=== PATIENT | female | born 1960 | race Caucasian/White ===

== ENCOUNTER → 2017-01-18 | Outpatient (CLI) | payer OTHER | LOC: BMCIMAGING 11:49 | PROVIDERS: ATTEND Family Medicine | DX: M25.572 Pain in left ankle and joints of left foot (principal) ==

== ENCOUNTER 2017-04-21 23:21 | Emergency (ER) | payer SELFPAY ==
[2017-04-21] MEDS ORDERED: NS 500 ML IV ONE (23:59)
--- NOTE | 2017-04-22 00:18 | EDPHY ---
H & P Stated Complaint: c/o pain in LUE that has started radiating into L shoulder/L forearm/hand HPI/ROS: HPI CHIEF COMPLAINT: Pain and left arm HISTORY OF PRESENT ILLNESS: Patient is a otherwise very pleasant 56-year-old female, she denies having any significant medical history denies taking any daily medications she presents emergency room with left arm pain. She does not remember any injury. However she states when she moves her left arm over her chest causes her great deal of pain in the posterior left arm. Is worse when she goes to reach over her chest. Or when she goes to lift her left arm up away from her chest. The pain is rather shooting stabbing pain left posterior arm left deltoid region. She denies any chest pain or shortness of breath. Denies any neck pain. Denies any focal weakness. Denies numbness or tingling. 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 She does state that she does not like to move her left arm given that it gives her a great deal of pain. She reports to me that she works at [employer]. She does not remember a specific injury. She states that she had 2 shots of liquor this evening, and smoked pot to help with her pain. This did not give her much relief. Pain is currently 7/10 when she moves her left arm. Past Medical History: No significant medical history Past Surgical History: No significant surgical history Social History: Daily use of alcohol 2 drinks per night, marijuana, denies tobacco. Family History: Noncontributory. ROS REVIEW OF SYSTEMS: A comprehensive 10 point review of systems is otherwise negative aside from elements mentioned in the history of present illness. Exam Constitutional appears well nontoxic triage nursing summary reviewed, vital signs reviewed, awake/alert. Vital Signs Reviewed: HTN. Eyes normal conjunctivae and sclera, EOMI, PERRLA. HENT normal inspection, atraumatic, moist mucus membranes, no epistaxis, neck supple/ no meningismus, no raccoon eyes. Respiratory clear to auscultation bilaterally, normal breath sounds, no respiratory distress, no wheezing. Cardiovascular rate normal, regular rhythm, no murmur, no edema, distal pulses normal. Gastrointestinal soft, non-tender, no rebound, no guarding, normal bowel sounds, no distension, no pulsatile mass. Genitourinary no CVA tenderness. Musculoskeletal no midline vertebral tenderness, full range of motion, no calf swelling, no tenderness of extremities, no meningismus, good pulses, neurovascularly intact. Left upper extremity: Tender palpation over the posterior left humerus proximal aspect, no obvious signs of trauma, with range of motion of her arm across her chest she gets pain in the posterior left arm. Additionally with abduction of her left arm she gets pain. She is otherwise neurovascular intact good radial pulse. Good cap refill. Good sensation. Full range of motion. Pain with range of motion. Strength appropriate. Good salesperson men's furnishings strength. Skin pink, warm, & dry, no rash, skin atraumatic. Neurologic awake, alert and oriented x 3, AAOx3, moves all 4 extremities equally, motor intact, sensory intact, CN II-XII intact, normal cerebellar, normal vision, normal speech. Psychiatric normal mood/affect. Heme/Lymph/Immune no lymphadenopathy. Differential Diagnosis: Includes but is not limited to in a particular order musculoskeletal strain, rotator cuff injury, cervical radiculopathy, nerve root compression, degenerative disc disease, cardiac disease Medical Decision Making: Plan for this patient EKG, x-ray left shoulder, chest x-ray, basic blood work, IV morphine for pain control and re-evaluate. Re-evaluation: EKG interpretation by me on record in [facility] system. Impression time of EKG 0053, this is sinus rhythm rate of 62 no acute ischemic change. Unremarkable nonischemic EKG. 0208: Blood work is reviewed negative troponin. Patient has a nonischemic EKG. Alcohol level noted to be high at 299. Chest x-ray two view as well as left shoulder x-ray reviewed by myself. I do not appreciate acute abnormality on either x-ray. 0209: Patient's exam is consistent with musculoskeletal should shoulder and left arm pain. Worse with certain movements. No evidence of cardiac disease in the emergency room. Alcohol level slightly elevated. I recommend that she could tobacco or alcohol. Additionally will provide her sling for comfort, anti -inflammatory pain medicine and refer her to Orthopedics. Additionally this also may be cervical radiculopathy pain I did explain this to her that she should see her primary care doctor about this possibly get an outpatient MRI to see if she has nerve root compression causing her left arm pain. I think cardiac is highly unlikely given that she has no chest pain shortness of breath she has a negative troponin nonischemic EKG. And that her pain is consistent with reproducible arm movements. 0303: I did re-evaluate the patient this time she does feel little bit better after IV morphine. I have ordered her Toradol at this time. Exam is consistent with most likely cervical radiculopathy. I do recommend close follow -up with her primary care doctor. 0346AM: Re-examination at this time. Patient is feeling much better after IV Toradol. She is requesting discharge home. Return precautions given. She understands. Source: Patient - Medical/Surgical History Hx Asthma: No Hx Chronic Respiratory Disease: No Hx Diabetes: No Hx Cardiac Disease: No Hx Renal Disease: No Hx Cirrhosis: No Hx Alcoholism: Yes Hx HIV/AIDS: No Hx Splenectomy or Spleen Trauma: No Other PMH: Diverticulitis, c section, abd surg related to divertic - Social History Smoking Status: Heavy smoker Constitutional: Initial Vital Signs Temperature (C) 36.9 C 04/21/17 23:27 Heart Rate 72 04/21/17 23:27 Respiratory Rate 18 04/21/17 23:27 Blood Pressure 187/119 H 04/21/17 23:27 O2 Sat (%) 95 04/21/17 23:27 O2 Delivery Mode Room Air O2 (L/minute) 2 Allergies/Adverse Reactions: No Known Allergies Allergy (Verified 04/21/17 23:32) Home Medications: Medication Instructions Recorded Aspirin 07/28/15 Ibuprofen [Motrin (*)] 800 mg PO Q6-8PRN #10 tab 04/22/17 Medical Decision Making - Data Points Laboratory Results: Laboratory Results 04/22/17 01:00 04/22/17 01:00 04/22/17 04/22/17 01:00 01:00 WBC 7.42 10^3/uL 10^3/uL (3.80-9.50) RBC 4.43 10^6/uL 10^6/uL (4.18-5.33) Hgb 15.6 g/dL g/dL (12.6-16.3) Hct 43.1 % % (38.0-47.0) MCV 97.3 fL fL (81.5-99.8) MCH 35.2 pg H pg (27.9-34.1) MCHC 36.2 g/dL g/dL (32.4-36.7) RDW 12.1 % % (11.5-15.2) Plt Count 116 10^3/uL L 10^3/uL (150-400) MPV 9.5 fL fL (8.7-11.7) Neut % (Auto) 49.8 % % (39.3-74.2) Lymph % (Auto) 36.3 % % (15.0-45.0) Cook % (Auto) 9.8 % % (4.5-13.0) Eos % (Auto) 1.9 % % (0.6-7.6) Baso % (Auto) 1.9 % H % (0.3-1.7) Nucleat RBC Rel Count 0.0 % % (0.0-0.2) Absolute Neuts (auto) 3.70 10^3/uL 10^3/uL (1.70-6.50) Absolute Lymphs (auto) 2.69 10^3/uL 10^3/uL (1.00-3.00) Absolute Monos (auto) 0.73 10^3/uL 10^3/uL (0.30-0.80) Absolute Eos (auto) 0.14 10^3/uL 10^3/uL (0.03-0.40) Absolute Basos (auto) 0.14 10^3/uL H 10^3/uL (0.02-0.10) Absolute Nucleated RBC 0.00 10^3/uL 10^3/uL (0-0.01) Immature Gran % 0.3 % % (0.0-1.1) Immature Gran # 0.02 10^3/uL 10^3/uL (0.00-0.10) Sodium 147 mEq/L H mEq/L (134-144) Potassium 3.7 mEq/L mEq/L (3.5-5.2) Chloride 106 mEq/L mEq/L (97-110) Carbon Dioxide 18 mEq/l L mEq/l (22-31) Anion Gap 23 mEq/L H mEq/L (8-16) BUN 11 mg/dL mg/dL (7-23) Creatinine 0.7 mg/dL mg/dL (0.6-1.0) Estimated GFR > 60 Glucose 96 mg/dL mg/dL (70-100) Calcium 9.8 mg/dL mg/dL (8.5-10.4) Creatine Kinase 69 IU/L IU/L (0-156) CK-MB (CK-2) Fraction 1.07 ng/mL ng/mL (0.00-3.19) Troponin I < 0.012 ng/mL ng/mL (0.000-0.034) Ethyl Alcohol 299 mg/dL H mg/dL (0-10) Medications Given: Discontinued Medications Sodium Chloride (Ns) 500 mls @ 1,000 mls/hr IV EDNOW ONE PRN Reason: Protocol Stop: 04/22/17 00:28 Last Admin: 04/22/17 01:09 Dose: 500 mls Ketorolac Tromethamine (Toradol) 15 mg IVP EDNOW ONE Stop: 04/22/17 03:03 Last Admin: 04/22/17 03:06 Dose: 15 mg Morphine Sulfate (Morphine) 4 mg IVP EDNOW ONE Stop: 04/22/17 00:33 Last Admin: 04/22/17 00:53 Dose: 4 mg Ondansetron HCl (Zofran) 4 mg IVP EDNOW ONE Stop: 04/22/17 00:33 Last Admin: 04/22/17 00:53 Dose: 4 mg Departure - Departure Disposition: Home, Routine, Self-Care Clinical Impression: Cervical radiculopathy Arm pain Qualifiers: Laterality: left Qualified Code(s): M79.602 - Pain in left arm Condition: Good Instructions: Arthralgia (ED), Arm Pain (ED) Additional Instructions: 1. Ice your shoulder. 2. Sling for comfort. 3. Follow up with her primary care doctor. 4. Additionally I have given you a orthopedic referral. 5. Ibuprofen for pain control. Referrals: Flaquito Hinojosa MD [Primary Care Provider] - As per Instructions Jasbir Lopez MD [Medical Doctor] - As per Instructions Prescriptions: Ibuprofen [Motrin (*)] 800 mg PO Q6-8PRN #10 tab
[2017-04-22] MEDS ORDERED: ONDANSETRON 4 MG/2 ML VIAL IVP ONE (00:32)
--- NOTE | 2017-04-22 00:32 | CPEKG ---
Heart Rate: 54 RR Interval: 1111 P-R Interval: 124 QRSD Interval: 72 QT Interval: 444 QTC Interval: 421 P [place]: 53 QRS [place]: 71 T Wave [place]: 55 EKG Severity - NORMAL ECG - EKG Impression: SINUS RHYTHM Electronically Signed By: Lonnie Dahl 22-Apr-2017 06:54:49
[2017-04-22 01:06] LABS: % IMMATURE GRANULYOCYTES 0.3 % (0.0-1.1); ABSOLUTE IMMATURE GRANULOCYTES 0.02 10^3/uL (0.00-0.10); ADD DIFF? NO; ADD MORPH? NO; ADD SCAN? NO; ATYPICAL LYMPHOCYTE FLAG 0 (0-99); FRAGMENT RBC FLAG 0 (0-99); HEMATOCRIT 43.1 % (38.0-47.0); HEMOGLOBIN 15.6 g/dL (12.6-16.3); LEFT SHIFT FLG 0 (0-99); LIPEMIA HEMOLYSIS FLAG 90 (0-99); MEAN CELL HEMOGLOBIN 35.2 pg (27.9-34.1); MEAN CELL HEMOGLOBIN CONCENTR. 36.2 g/dL (32.4-36.7); MEAN CELL VOLUME 97.3 fL (81.5-99.8); MEAN PLATELET VOLUME 9.5 fL (8.7-11.7); PLATELET CLUMPS FLAG 0 (0-99); PLATELET COUNT 116 10^3/uL (150-400); RED BLOOD CELL COUNT 4.43 10^6/uL (4.18-5.33); RED CELL DISTRIBUTION WIDTH 12.1 % (11.5-15.2)
[2017-04-22 01:24] LABS: ANION GAP 23 mEq/L (8-16); CALCIUM 9.8 mg/dL (8.5-10.4); CARBON DIOXIDE 18 mEq/l (22-31); CHLORIDE 106 mEq/L (97-110); CREATININE 0.7 mg/dL (0.6-1.0); GLOMERULAR FILTRATION RATE > 60; GLUCOSE 96 mg/dL (70-100); POTASSIUM 3.7 mEq/L (3.5-5.2); SODIUM 147 mEq/L (134-144)
[2017-04-22 01:35] LABS: CREATINE KINASE-MB FRACTION 1.07 ng/mL (0.00-3.19); TROPONIN I < 0.012 ng/mL (0.000-0.034)
[2017-04-22 01:43] LABS: ETHANOL SERUM 299 mg/dL (0-10)
[2017-04-22] MEDS ORDERED: KETOROLAC 15 MG/1 ML SDV IVP ONE (03:02)
[2017-04-22 04:07] VITALS: BP 138/74; PULSE 67; RESP 18; TEMP 98.1; O2SAT 93
--- NOTE | 2017-04-22 10:30 | CPEKG ---
Heart Rate: 62 RR Interval: 968 P-R Interval: 143 QRSD Interval: 94 QT Interval: 452 QTC Interval: 459 P [place]: 45 QRS [place]: -13 T Wave [place]: 26 EKG Severity - NORMAL ECG - EKG Impression: SINUS RHYTHM Electronically Signed By: Andi Gavin 22-Apr-2017 13:02:57
== END 2017-04-22 04:07 | disposition home or self-care (01) ==
DX: M54.12 Radiculopathy, cervical region (principal); F17.200 Nicotine dependence, unspecified, uncomplicated; E86.9 Volume depletion, unspecified; Z79.82 Long term (current) use of aspirin
CPT/HCPCS: 96374; G0480; J1885; J2405

== ENCOUNTER → 2017-05-25 | Outpatient (CLI) | payer OTHER | LOC: FIMAGING 09:44 | PROVIDERS: ATTEND Family Medicine | DX: M79.622 Pain in left upper arm (principal) ==